=== PATIENT | male | born 1955 | race Caucasian/White ===

== ENCOUNTER 2018-09-23 14:50 | Emergency (ER) | payer SELFPAY ==
[2018-09-23] MEDS ORDERED: HYDROCODONE/APAP 10/325 TAB ONE (16:15)
--- NOTE | 2018-09-23 16:51 | RAD REPORT ---
EXAM DESCRIPTION: RAD - Elbow Right 3 View - 09/23/2018 4:42 pm CLINICAL HISTORY: Elbow pain, fall COMPARISON: None. FINDINGS: No fracture is identified and no elevated posterior fat pad. There is no dislocation or pe riosteal reaction noted. Linear calcification evident in the soft tissues posterior and lateral to th e elbow joint at the level of the lateral epicondyle. This is not likely related to acute trauma. An acute bony avulsion is not suspected. 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 IMPRESSION: No fracture or acute joint finding identifiable. If the patient has continued, unexplained symptoms, followup outpatient MRI imaging could be performe d to assess for occult bony injury or soft tissue injury.
--- NOTE | 2018-09-23 17:12 | RAD REPORT ---
EXAM DESCRIPTION: RAD - Forearm Right - 09/23/2018 4:42 pm CLINICAL HISTORY: Fall, arm pain COMPARISON: None. FINDINGS: No fracture is identified. There is no dislocation or periosteal reaction noted. No foreign body or other soft tissue abnormality. IMPRESSION: Negative right forearm examination. Elbow findings are separately detailed.
--- NOTE | 2018-09-23 17:23 | EDPHYS ---
Physician Documentation [facility] Name: Jonathan Rogers Age: 63 yrs Sex: Male : 1955 Arrival Date: 09/23/2018 Time: 14:51 Bed 26 Private MD: Santosh Garduno H ED Physician Min Cullen HPI: 09/23 17:20 This 63 yrs old Male presents to ER via Ambulatory with complaints of Arm pm1 Injury. 17:20 The patient or guardian complains of pain. The complaints affect the dorsal aspect of pm1 right forearm and right elbow. Context: The problem was sustained at home, resulted from a fall, the patient slipped. Onset: The symptoms/episode began/occurred at 11:00. Treatment prior to arrival includes: no previous treatment. Modifying factors: The symptoms are alleviated by remaining still, the symptoms are aggravated by movement, bending arm. Associated signs and symptoms: Pertinent negatives: fever, numbness, tingling. Severity of symptoms: in the emergency department the symptoms are actually worse. The patient has not experienced similar symptoms in the past. The patient has not recently seen a physician. Historical: - Allergies: 15:10 Ibuprofen; sv - PMHx: 15:10 None; sv - PSHx: 15:10 thumb; sv - Immunization history:: Adult Immunizations. - Social history:: Smoking status: . - Ebola Screening: : Patient negative for fever greater than or equal to 101.5 degrees Fahrenheit, and additional compatible Ebola Virus Disease symptoms Patient denies travel to an Ebola-affected area in the 21 days before illness onset. ROS: 17:20 Constitutional: Negative for fever, chills, and weight loss, Eyes: Negative for injury, pm1 pain, redness, and discharge, ENT: Negative for injury, pain, and discharge, Neck: Negative for injury, pain, and swelling, Cardiovascular: Negative for chest pain, palpitations, and edema, Respiratory: Negative for shortness of breath, cough, wheezing, and pleuritic chest pain, Abdomen/GI: Negative for abdominal pain, nausea, vomiting, diarrhea, and constipation, Back: Negative for injury and pain, : Negative for injury, bleeding, discharge, and swelling. 17:20 Skin: Negative for injury, rash, and discoloration, Neuro: Negative for headache, weakness, numbness, tingling, and seizure. 17:20 MS/extremity: Positive for pain, of the right elbow and dorsal aspect of right forearm. Exam: 17:20 Constitutional: This is a well developed, well nourished patient who is awake, alert, pm1 and in no acute distress. Head/Face: Normocephalic, atraumatic. Eyes: Pupils equal round and reactive to light, extra-ocular motions intact. Lids and lashes normal. Conjunctiva and sclera are non-icteric and not injected. Cornea within normal limits. Periorbital areas with no swelling, redness, or edema. ENT: Nares patent. No nasal discharge, no septal abnormalities noted. Tympanic membranes are normal and external auditory canals are clear. Oropharynx with no redness, swelling, or masses, exudates, or evidence of obstruction, uvula midline. Mucous membranes moist. Neck: Trachea midline, no thyromegaly or masses palpated, and no cervical lymphadenopathy. Supple, full range of motion without nuchal rigidity, or vertebral point tenderness. No Meningismus. Chest/axilla: Normal chest wall appearance and motion. Nontender with no deformity. No lesions are appreciated. Cardiovascular: Regular rate and rhythm with a normal S1 and S2. No gallops, murmurs, or rubs. Normal PMI, no JVD. No pulse deficits. Respiratory: Lungs have equal breath sounds bilaterally, clear to auscultation and percussion. No rales, rhonchi or wheezes noted. No increased work of breathing, no retractions or nasal flaring. Abdomen/GI: Soft, non-tender, with normal bowel sounds. No distension or tympany. No guarding or rebound. No evidence of tenderness throughout. Back: No spinal tenderness. No costovertebral tenderness. Full range of motion. Skin: Warm, dry with normal turgor. Normal color with no rashes, no lesions, and no evidence of cellulitis. 17:20 Musculoskeletal/extremity: Extremities: grossly normal except: noted in the right elbow: tenderness, There is no evidence of decreased ROM, deformity. Vital Signs: 15:09 BP 159 / 76; Pulse 87; Resp 16; Temp 98.8; Pulse Ox 99% ; Weight 68.04 kg; Height 5 ft. sv 11 in. (180.34 cm); Pain 2/10; 16:36 BP 150 / 75; Pulse 65; Resp 17; Pulse Ox 99% on R/A; tw2 17:21 BP 137 / 68; Pulse 63; Resp 17; Pulse Ox 96% on R/A; tw2 15:09 Body Mass Index 20.92 (68.04 kg, 180.34 cm) MDM: 15:54 Patient medically screened. pm1 17:20 Data reviewed: vital signs. Data interpreted: Pulse oximetry: on room air is 96 %. pm1 Interpretation: normal. Counseling: I had a detailed discussion with the patient and/or guardian regarding: the historical points, exam findings, and any diagnostic results supporting the discharge/admit diagnosis, radiology results, the need for outpatient follow up, to return to the emergency department if symptoms worsen or persist or if there are any questions or concerns that arise at home. 09/23 15:11 Order name: Elbow Right 3 View XRAY; Complete Time: 17:19 sv 09/23 16:02 Order name: Forearm Right XRAY; Complete Time: 17:19 pm1 09/23 17:20 Order name: Sling; Complete Time: 17:24 pm1 Administered Medications: 16:22 Drug: [place] 10 mg-325 mg 1 tabs Route: PO; tw2 17:20 Follow up: Response: No adverse reaction tw2 Disposition: 09/23/18 17:22 Discharged to Home. Impression: Pain in right elbow. - Condition is Stable. - Discharge Instructions: Musculoskeletal Pain, Elbow Contusion, How to Use a Sling. - Prescriptions for Tylenol- Codeine #3 300-30 mg Oral Tablet - take 2 tablets by ORAL route every 6 hours As needed; 20 tablet. - Medication Reconciliation Form, Thank You Letter, Antibiotic Education, Prescription Opioid Use, Work release form form. - Follow up: Emergency Department; When: As needed; Reason: Worsening of condition. Follow up: Private Physician; When: 2 - 3 days; Reason: Recheck today's complaints, Continuance of care, Re-evaluation by your physician. - Problem is new. - Symptoms have improved. Addendum: 09/26/2018 07:07 Co-signature as Attending Physician, Min Cullen MD I agree with the assessment and k dr plan of care. Signatures: Dispatcher [employer] Lani Redd RN RN sv Rittger, Kevin, MD MD kdr Marinas, , OR NURSE MANAGER OR NURSE MANAGER pm1 Tamara Porter RN RN tw2 Corrections: (The following items were deleted from the chart) 09/23 17:28 17:22 09/23/2018 17:22 Discharged to Home. Impression: Pain in right elbow. Condition tw2 is Stable. Forms are Work release form, Medication Reconciliation Form, Thank You Letter, Antibiotic Education, Prescription Opioid Use. Follow up: Emergency Department; When: As needed; Reason: Worsening of condition. Follow up: Private Physician; When: 2 - 3 days; Reason: Recheck today's complaints, Continuance of care, Re-evaluation by your physician. Problem is new. Symptoms have improved. pm1
--- NOTE | 2018-09-23 17:23 | ER ---
Nurse's Notes [facility] Name: Jonathan Rogers Age: 63 yrs Sex: Male : 1955 Arrival Date: 09/23/2018 Time: 14:51 Bed 26 Private MD: Santosh Garduno H Diagnosis: Pain in right elbow Presentation: 09/23 15:08 Presenting complaint: Patient states: right elbow pain started today after tripping on sv the ground. Denies LOC. Transition of care: patient was not received from another setting of care. Onset of symptoms was September 23, 2018. Care prior to arrival: Medication(s) given: ASA, x 3. 15:08 Method Of Arrival: Ambulatory sv 15:08 Acuity: MIL[place] 4 sv 17:06 Risk Assessment: Do you want to hurt yourself or someone else? Patient reports no tw2 desire to harm self or others. Initial Sepsis Screen: Does the patient meet any 2 criteria? No. Patient's initial sepsis screen is negative. Does the patient have a suspected source of infection? No. Patient's initial sepsis screen is negative. Triage Assessment: 17:07 General: Appears in no apparent distress. Injury Description: from fall. tw2 Historical: - Allergies: 15:10 Ibuprofen; sv - PMHx: 15:10 None; sv - PSHx: 15:10 thumb; sv - Immunization history:: Adult Immunizations. - Social history:: Smoking status: . - Ebola Screening: : Patient negative for fever greater than or equal to 101.5 degrees Fahrenheit, and additional compatible Ebola Virus Disease symptoms Patient denies travel to an Ebola-affected area in the 21 days before illness onset. Screenin:06 Abuse screen: Denies threats or abuse. Nutritional screening: No deficits noted. tw2 Tuberculosis screening: No symptoms or risk factors identified. Fall Risk None identified. Assessment: 16:00 General: Appears in no apparent distress. slender, Behavior is calm, cooperative, tw2 appropriate for age. Pain: Complains of pain in right arm. Neuro: Level of Consciousness is awake, alert, obeys commands, Oriented to person, place, time, situation. Cardiovascular: Patient's skin is warm and dry. Respiratory: Airway is patent Respiratory effort is even, unlabored, Respiratory pattern is regular, symmetrical. GI: No signs and/or symptoms were reported involving the gastrointestinal system. : No signs and/or symptoms were reported regarding the genitourinary system. EENT: No signs and/or symptoms were reported regarding the EENT system. Derm: No signs and/or symptoms reported regarding the dermatologic system. Musculoskeletal: Range of motion: intact in all extremities. 16:36 Reassessment: Patient appears in no apparent distress at this time. No changes from tw2 previously documented assessment. Patient and/or family updated on plan of care and expected duration. Pain level reassessed. Patient is alert, oriented x 3, equal unlabored respirations, skin warm/dry/pink. 17:21 Reassessment: Patient appears in no apparent distress at this time. Patient and/or tw2 family updated on plan of care and expected duration. Pain level reassessed. Patient is alert, oriented x 3, equal unlabored respirations, skin warm/dry/pink. Patient states feeling better. Vital Signs: 15:09 BP 159 / 76; Pulse 87; Resp 16; Temp 98.8; Pulse Ox 99% ; Weight 68.04 kg; Height 5 ft. sv 11 in. (180.34 cm); Pain 2/10; 16:36 BP 150 / 75; Pulse 65; Resp 17; Pulse Ox 99% on R/A; tw2 17:21 BP 137 / 68; Pulse 63; Resp 17; Pulse Ox 96% on R/A; tw2 15:09 Body Mass Index 20.92 (68.04 kg, 180.34 cm) sv ED Course: 14:51 Patient arrived in ED. as 14:51 Santosh Garduno MD is Private Physician. as 15:09 Triage completed. sv 15:10 Arm band placed on. sv 15:50 Bed in low position. Call light in reach. Adult w/ patient. Pulse ox on. NIBP on. tw2 15:54 Patrick Evangelista NP is PHCP. pm1 15:54 Min Cullen MD is Attending Physician. pm1 16:03 Tamara Porter, DANYELL is Primary Nurse. tw2 16:43 Elbow Right 3 View XRAY In Process Unspecified. EDMS 16:43 Forearm Right XRAY In Process Unspecified. EDMS 17:27 No provider procedures requiring assistance completed. Patient did not have IV access tw2 during this emergency room visit. Administered Medications: 16:22 Drug: [place] 10 mg-325 mg 1 tabs Route: PO; tw2 17:20 Follow up: Response: No adverse reaction tw2 Outcome: 17:22 Discharge ordered by . pm1 17:27 Discharged to home ambulatory, with family. tw2 17:27 Condition: stable 17:27 Discharge instructions given to patient, family, Instructed on discharge instructions, follow up and referral plans. no drinking with medication, no driving heavy equipment, medication usage, Demonstrated understanding of instructions, follow-up care, medications, Prescriptions given X 1. 17:28 Patient left the ED. tw2 Signatures: Dispatcher [employer] EDLani Torres RN RN sv Martinez, Amelia as Marinas, Patrick, NP EMPLOYMENT CASE MANAGER pm1 Tamara Porter RN RN tw2
== END 2018-09-23 17:28 | disposition home or self-care (01) ==
LOC: ER 14:50
DX: M25.521 Pain in right elbow (principal); W01.0XXA Fall on same level from slipping, tripping and stumbling without subsequent striking against object, initial encounter; Y93.9 Activity, unspecified; Y92.9 Unspecified place or not applicable
CPT/HCPCS: 99284